=== PATIENT | male | born 1985 | race Caucasian/White ===

== ENCOUNTER 2016-09-14 13:26 | Outpatient (RCR) | payer BC ==
--- OUTSIDE RECORDS SUMMARY | 2016-09-01 12:09 | XMS REPORT | Continuity of Care Document ---
Author Author [facility] Organization [facility] Address Unknown Phone Unavailable Care Team Providers Care Manager [employer] Name Role Phone No Pcp, Na PCP Unavailable Source Comments Some departments are not documenting in the electronic medical record. If you do not see the information that you expected, contact Release of Information in the Health Information Management department at [phone] for further assistance in locating additional records.[facility] Active Allergies and Adverse Reactions No Known Allergies Current Medications Prescription Sig. Disp. Refills Start End Date Status Date clotrimazole-betamethason Apply to affected area Active e (LOTRISONE) 1-0.05 % twice a day. topical cream pantoprazole DR Take 1 Tab by mouth 90 Tab 1 05/19/20 Active (PROTONIX) 40 mg tablet daily. Take while on 16 prednisone. Once you are finished with prednisone, you can stop taking protonix. calcium carbonate/vitamin Take 1 Tab by mouth 90 Tab 1 05/19/20 Active D-3 (CALCIUM+D) 1250 daily. Calcium Carb 16 mg/200 unit tablet 1250mg delivers 500mg elemental CaTake while on prednisone. Stop taking once you are finished taking prednisone. dapsone 100 mg tablet Take 1 Tab by mouth twice 60 Tab 2 05/19/20 Active daily. Continue while on 16 prednisone or as directed by physician. folic acid (FOLVITE) 1 mg Take 1 Tab by mouth 90 Tab 3 05/19/20 Active tablet daily. Continue while on 16 prednisone. cyanocobalamin (VITAMIN Inject 1000mcg (1ml) 4 mL 5 05/26/20 Active B-12) 1,000 mcg/mL intramuscularly once 16 injection weekly for 4 weeks then inject 1000mcg (1mL) once monthlyThis will be administered in clinic predniSONE (DELTASONE) 50 Take 1 Tab by mouth 30 Tab 0 05/20/20 Active mg tablet daily. Take with food. 16 Active Problems Problem Noted Date Penile lesion 07/09/2016 Hemolytic anemia (HCC) 05/13/2016 Spider bite 05/13/2016 Overview: -- 06/12/16: Follow up visit. Spider bite healing appropriately. L ast Assessment & Plan: 30 y.o.M, otherwise healthy healthy, recovering from assumed spider bite. Plan: - Will follow up in cancer clinic Most Recent Encounters Date Type Specialty Providers Description 07/07/2016 Office Visit Oncology Mehdi Guerrero MD Spider bite, assault , sequela (Primary Dx); Penile lesion 06/08/2016 Office Visit Urology Mehdi Guerrero MD Spider bite, assault, sequela (Primary Dx) Social History Tobacco Use Types Packs/Day Years Used Date Never Smoker Alcohol Use Drinks/Week oz/Week Comments Yes 7 Standard 4.2 drinks or equivalent Last Filed Vital Signs Vital Sign Reading Time Taken Blood Pressure 113/67 07/07/2016 3:19 PM CDT Pulse 92 07/07/2016 3:19 PM CDT Temperature 36.2 C (97.2 F) 07/07/2016 3:19 PM CDT Respiratory Rate 16 07/07/2016 3:19 PM CDT Height 1.829 m (6') 07/07/2016 3:19 PM CDT Weight 86.183 kg (190 lb) 07/07/2016 3:19 PM CDT Body Mass Index 25.76 07/07/2016 3:19 PM CDT Oxygen Saturation 95% 07/07/2016 3:19 PM CDT Plan of Care Health Maintenance Due Date Last Done Comments Physical (Comprehensive) 1990 Exam Pertussis Vaccine 1994 Tetanus Vaccine 2000 Influenza Vaccine 07/23/2016 Results from Last 3 Months Not on file
[2016-09-01 12:14] LABS: BASOPHILS # (AUTO) 0.1 10^3/uL (0.0-0.1); BASOPHILS % (AUTO) 1 % (0-10); EOSINOPHILS # (AUTO) 0.3 10^3/uL (0.0-0.3); EOSINOPHILS % (AUTO) 3 % (0-10); LYMPHOCYTES # (AUTO) 2.2 X 10^3 (1.0-4.0); LYMPHOCYTES % (AUTO) 27 % (12-44); MEAN CORPUSCULAR HEMOGLOBIN 29 PG (25-34); MEAN CORPUSCULAR HGB CONC 34 G/DL (32-36); MEAN CORPUSCULAR VOLUME 86 FL (80-99); MEAN PLATELET VOLUME 9.5 FL (7.4-10.4); MONOCYTES # (AUTO) 0.6 X 10^3 (0.0-1.0); MONOCYTES % (AUTO) 8 % (0-12); NEUTROPHILS # (AUTO) 5.3 X 10^3 (1.8-7.8); NEUTROPHILS % (AUTO) 62 % (42-75); PLATELET COUNT 222 10^3/uL (130-400); RED BLOOD COUNT 5.35 10^6/uL (4.35-5.85); RED CELL DISTRIBUTION WIDTH 12.5 % (10.0-14.5); RETICULOCYTE % 0.26 % (0.50-2.40); WHITE BLOOD COUNT 8.5 10^3/uL (4.3-11.0)
[2016-09-01 13:45] LABS: ALANINE AMINOTRANSFERASE 19 U/L (0-55); ALBUMIN 4.5 G/DL (3.2-4.5); ANION GAP 13 MMOL/L (5-14); ASPARTATE AMINO TRANSFERASE 15 U/L (5-34); BILIRUBIN,TOTAL 0.4 MG/DL (0.1-1.0); BLOOD UREA NITROGEN 11 MG/DL (7-18); BUN/CREATININE RATIO 14; CARBON DIOXIDE 20 MMOL/L (21-32); CHLORIDE 105 MMOL/L (98-107); CREATININE SERUM 0.79 MG/DL (0.60-1.30); GFR ESTIMATED > 60; GLUCOSE 89 MG/DL (70-105); LACTATE DEHYDROGENASE 171 U/L (125-220); POTASSIUM 3.7 MMOL/L (3.6-5.0); SODIUM 138 MMOL/L (135-145); TOTAL PROTEIN 6.6 G/DL (6.4-8.2)
[~2016-09-14 13:26] MED LIST: AMOX1TAB11 PO; BETA15CR37 TOP; CLIN300C11 PO; HYDR-3812 PO; HYDR-3820 PO; HYDR15OI TOP; TRAM50TA2 PO
[2016-09-14 13:46] LABS: BASOPHILS # (AUTO) 0.1 10^3/uL (0.0-0.1); BASOPHILS % (AUTO) 1 % (0-10); EOSINOPHILS # (AUTO) 0.3 10^3/uL (0.0-0.3); EOSINOPHILS % (AUTO) 4 % (0-10); LYMPHOCYTES # (AUTO) 2.3 X 10^3 (1.0-4.0); LYMPHOCYTES % (AUTO) 30 % (12-44); MEAN CORPUSCULAR HEMOGLOBIN 29 PG (25-34); MEAN CORPUSCULAR HGB CONC 35 G/DL (32-36); MEAN CORPUSCULAR VOLUME 84 FL (80-99); MEAN PLATELET VOLUME 9.4 FL (7.4-10.4); MONOCYTES # (AUTO) 0.5 X 10^3 (0.0-1.0); MONOCYTES % (AUTO) 6 % (0-12); NEUTROPHILS # (AUTO) 4.6 X 10^3 (1.8-7.8); NEUTROPHILS % (AUTO) 59 % (42-75); PLATELET COUNT 206 10^3/uL (130-400); RED BLOOD COUNT 5.24 10^6/uL (4.35-5.85); RED CELL DISTRIBUTION WIDTH 12.5 % (10.0-14.5); RETICULOCYTE % 0.22 % (0.50-2.40); WHITE BLOOD COUNT 7.8 10^3/uL (4.3-11.0)
[2016-09-14 14:16] LABS: ALANINE AMINOTRANSFERASE 22 U/L (0-55); ALBUMIN 4.5 G/DL (3.2-4.5); ANION GAP 8 MMOL/L (5-14); ASPARTATE AMINO TRANSFERASE 18 U/L (5-34); BILIRUBIN,TOTAL 0.6 MG/DL (0.1-1.0); BLOOD UREA NITROGEN 8 MG/DL (7-18); BUN/CREATININE RATIO 10; CALCIUM 9.1 MG/DL (8.5-10.1); CARBON DIOXIDE 27 MMOL/L (21-32); CHLORIDE 107 MMOL/L (98-107); CREATININE SERUM 0.79 MG/DL (0.60-1.30); GFR ESTIMATED > 60; GLUCOSE 80 MG/DL (70-105); LACTATE DEHYDROGENASE 152 U/L (125-220); POTASSIUM 3.9 MMOL/L (3.6-5.0); SODIUM 142 MMOL/L (135-145); TOTAL PROTEIN 6.6 G/DL (6.4-8.2)
[2016-09-14 16:33] LABS: %SAT TOTAL IRON BINDING CAPIC 38 % (15-50); TIBC 304 ug/dL (280-380)
[2016-09-15 09:39] LABS: FERRITIN 555 ng/mL (25-300); UIBC 190 ug/dL (55-450)
[2016-11-18] MEDS ORDERED: HYDR-3729 PO (16:38)
[2016-11-18] MEDS ORDERED: AMOX-355 PO (16:38)
[2016-11-18] MEDS ORDERED: PRD20T PO (16:38)
== END 2016-11-30 | disposition home or self-care (01) ==
LOC: ONC 13:26
PROVIDERS: ATTEND Internal Medicine Hematology & Oncology
DX: D59.1 Other autoimmune hemolytic anemias (principal)
CPT/HCPCS: 36415; 80053; 82728; 83540; 83615; 85025; 85045; 99213

== ENCOUNTER 2017-01-04 14:32 | Outpatient (RCR) | payer BC ==
--- OUTSIDE RECORDS SUMMARY | 2017-01-01 11:52 | XMS REPORT | Continuity of Care Document ---
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 If you do not see the information that you expected, contact Release of Information in the Health Information Management department at [phone] for further assistance in locating additional records.[facility] Active Allergies and Adverse Reactions No Known [...] - Will follow up in cancer clinic Social History Tobacco Use Types Packs/Day Years [...]
[2017-01-01 12:19] LABS: BASOPHILS % (AUTO) 1 % (0-10); EOSINOPHILS # (AUTO) 0.2 10^3/uL (0.0-0.3); EOSINOPHILS % (AUTO) 2 % (0-10); LYMPHOCYTES % (AUTO) 32 % (12-44); MEAN CORPUSCULAR HEMOGLOBIN 30 PG (25-34); MEAN CORPUSCULAR HGB CONC 35 G/DL (32-36); MEAN CORPUSCULAR VOLUME 85 FL (80-99); MEAN PLATELET VOLUME 9.9 FL (7.4-10.4); MONOCYTES # (AUTO) 0.4 X 10^3 (0.0-1.0); MONOCYTES % (AUTO) 6 % (0-12); NEUTROPHILS # (AUTO) 3.7 X 10^3 (1.8-7.8); NEUTROPHILS % (AUTO) 59 % (42-75); PLATELET COUNT 198 10^3/uL (130-400); RED BLOOD COUNT 5.13 10^6/uL (4.35-5.85); RED CELL DISTRIBUTION WIDTH 12.5 % (10.0-14.5); RETICULOCYTE % 0.39 % (0.50-2.40); WHITE BLOOD COUNT 6.3 10^3/uL (4.3-11.0)
[2017-01-01 12:38] LABS: ALANINE AMINOTRANSFERASE 22 U/L (0-55); ALBUMIN 4.6 G/DL (3.2-4.5); ANION GAP 8 MMOL/L (5-14); ASPARTATE AMINO TRANSFERASE 20 U/L (5-34); BILIRUBIN,TOTAL 0.7 MG/DL (0.1-1.0); BLOOD UREA NITROGEN 8 MG/DL (7-18); BUN/CREATININE RATIO 9; CARBON DIOXIDE 28 MMOL/L (21-32); CHLORIDE 105 MMOL/L (98-107); CREATININE SERUM 0.91 MG/DL (0.60-1.30); GFR ESTIMATED > 60; GLUCOSE 95 MG/DL (70-105); LACTATE DEHYDROGENASE 162 U/L (125-220); POTASSIUM 3.8 MMOL/L (3.6-5.0); SODIUM 141 MMOL/L (135-145); TOTAL PROTEIN 6.7 G/DL (6.4-8.2)
[~2017-01-04 14:32] MED LIST changes: +AMOX-355 PO; +HYDR-3729 PO; +PRD20T PO
== END 2017-04-01 | disposition home or self-care (01) ==
LOC: ONC 14:32
PROVIDERS: ATTEND Internal Medicine Hematology & Oncology
DX: D59.1 Other autoimmune hemolytic anemias (principal)
CPT/HCPCS: 36415; 80053; 83615; 85025; 85045; 99213

== ENCOUNTER → 2022-07-22 | Outpatient (RCR) | payer BC ==
[~2022-07-22] MED LIST changes: +ACHD5005 PO; +ACHYD1T PO; +BETA15CR14 TOP; -BETA15CR37 TOP; +CLIN-144 PO; -CLIN300C11 PO; -HYDR-3812 PO; -HYDR-3820 PO; -TRAM50TA2 PO; +TRM50T PO
== END | disposition home or self-care (01) ==
PROVIDERS: ATTEND Family Medicine
DX: M24.212 Disorder of ligament, left shoulder (principal)

== ENCOUNTER 2022-08-13 08:04 | Outpatient (RCR) | payer BC | END 2022-08-21 | disposition home or self-care (01) | PROVIDERS: ATTEND Family Medicine | DX: M24.212 Disorder of ligament, left shoulder (principal) ==

== ENCOUNTER → 2023-05-28 | Outpatient (CLI) | payer BC ==
--- NOTE | 2023-05-28 14:22 | Diagnostic Imaging Report ---
PROCEDURE: US Scrotum. TECHNIQUE: Multiple real-time grayscale images were obtained over the scrotum in various projections bilaterally. INDICATION: Right testicular lesion. No prior studies are available for comparison. Right testicle measures 4.4 x 2.2 x 3.5 cm and the left testicle measures 4.4 x 2.2 x 3.1 cm. Both testes show homogeneous echotexture. No discrete testicular mass is identified. There is blood flow to both testes. The left epididymis is unremarkable. Right epididymis contain several small cysts in the epididymal head, largest approximately 2.3 cm in diameter. There is a small left hydrocele. There is also a small left varicocele. IMPRESSION: 1. No evidence of testicular mass or vascular compromise. 2. Right epididymal head cysts. 3. Small left hydrocele and small left varicocele. Dictated by: Dictated on workstation # [id number]
== END ==
LOC: RAD 08:50
PROVIDERS: ATTEND Nurse Practitioner
DX: N50.3 Cyst of epididymis (principal); N43.3 Hydrocele, unspecified; I86.1 Scrotal varices; N50.9 Disorder of male genital organs, unspecified
CPT/HCPCS: 76870